=== PATIENT | female | born 1975 | race Two or more races ===

== ENCOUNTER → 2024-11-23 | Emergency (ER) | payer OTHER ==
[~2024-11-23] VITALS: Ht 175.3 cm; Wt 90.7 kg
[~2024-11-23] MED LIST: 0.9 % SODIUM CHLORIDE 1,000 ML IV ONE; CEFTRIAXONE SODIUM 1,000 MG VIAL IV ONE; FAMOtidine 10 MG/ML (4ML VIAL) IV ONE; HUMALOG100 UNIT/2 SQ; INSULIN LISPRO 1,000 UNIT/10 ML UNITS SUBCUTANEO ONE; INSULIN REGULAR, HUMAN 1,000 UNIT/10 ML UNITS SUBCUTANEO ONE; LANTUS SOL100 UNIT/1; LEVALBUTEROL HCL 0.63 MG/3 ML SOLUTION IH ONE; LEVALBUTEROL HCL 1.25 MG/3 ML SOLUTION IH ONE; LORazepam 2 MG/ML VIAL IM ONE; LORazepam 2 MG/ML VIAL ONE
[2024-11-23 23:34] LABS: INR 0.96
[2024-11-23 23:35] LABS: BASO % 0.6 % (0.1-1.2); EOS # 0.24 (0.04-0.54); EOS % 1.3 % (0.7-7.0); LYMPH # 4.69 (1.18-3.74); LYMPH % 26.3 % (19.3-53.1); MEAN PLATELET VOLUME 10.70 fl (9.4-12.4); MONO # 1.16 (0.24-0.82); MONO % 6.5 % (4.7-12.5); NEUT # 11.55 (1.56-6.13); NEUT % 64.7 % (34.0-71.1); RED CELL DISTRIBUTION WIDTH 16.0 % (11.6-14.4)
[2024-11-24 00:07] LABS: ALT/SGPT 36.0 U/L (12-78); AST/SGOT 25.0 U/L (15-37); BILIRUBIN TOTAL 0.31 mg/dL (0.3-1.2); BUN CREA RATIO 16.0 (7.0-25.0); CREATININE SERUM 1.27 mg/dL (0.55-1.02); GFR 44.54; GLOBULINA 4.3 G/DL (2.4-3.5); HCG QUANTITATIVE 2.0 mUI/mL (1-3); OSMOLALITY SERUM 298.0 MOSM/KG (275-295); PHOSPHOKINASE CREATININE 74.0 U/L (26-192)
[2024-11-24 00:07] LABS: URINE APPEARANCE Clear; URINE BILIRRUBIN Negative (NEGATIVE); URINE BLOOD Negative; URINE COLOR Yellow; URINE KETONE 15 (NEGATIVE); URINE LEUKOCYTE Negative; URINE NITRATE Negative; URINE UROBILINOGEN 0.2 E.U./dl
[2024-11-24 00:10] LABS: URINE BACTERIA 34.7 uL (0.0-1933); URINE CAST 2.78 uL (0.0-1.40); URINE EPITHELIAL CELLS 6.6 uL (0.0-38.8); URINE RBC 7.6 uL (0.0-20.8); URINE WBC 19.2 uL (0.0-23.2)
[2024-11-24 00:31] LABS: GLUCOSE FASTING 317.0 mg/dL (65-100)
[2024-11-24 00:32] LABS: COVID-19 AG NEGATIVE (NEGATIVE)
[2024-11-24 00:33] LABS: URINE GLUCOSE >=1000 MG/DL (NEGATIVE); URINE PROTEIN 100 (NEGATIVE)
[2024-11-24 01:09] LABS: ABG PH 7.379 (7.35-7.45); ABG PO2 84.4 mmHg (80-100); BICARBONATE 21.7 mmol/l (23-25)
[2024-11-24 01:17] LABS: o2 21 %
[2024-11-24 03:01] LABS: COCAINE NEGATIVE (NEGATIVE); METHADONE NEGATIVE (NEGATIVE); OPIATES NEGATIVE (NEGATIVE); THC ( Cannabinoids) NEGATIVE (NEGATIVE)
== END | disposition designated cancer center or children's hospital (05) ==
LOC: ER 22:18
PROVIDERS: General Practice
DX: I63.81 Other cerebral infarction due to occlusion or stenosis of small artery (principal); R55 Syncope and collapse; G40.89 Other seizures; Z20.822 Contact with and (suspected) exposure to COVID-19; E11.65 Type 2 diabetes mellitus with hyperglycemia; Z79.4 Long term (current) use of insulin
CPT/HCPCS: 70552